=== PATIENT | female | born 1990 | race Hispanic/Latino ===

== ENCOUNTER 2024-05-05 17:42 | Emergency (ER) | payer OTHER, SELFPAY ==
[2024-05-05 18:08] VITALS: BP 134/77; PULSE 83; RESP 16; TEMP 36.9; O2SAT 99
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
== END 2024-05-05 19:26 | disposition home or self-care (01) ==
PROVIDERS: Emergency Provider Nurse Practitioner Family
DX: R51.9 Headache, unspecified (principal); S40.021A Contusion of right upper arm, initial encounter; S80.12XA Contusion of left lower leg, initial encounter; S40.211A Abrasion of right shoulder, initial encounter; Y04.8XXA Assault by other bodily force, initial encounter
CPT/HCPCS: 99203; G0463